=== PATIENT | male | born 1970 | race Caucasian/White ===

== ENCOUNTER 2019-09-13 06:13 | Emergency (ER) | payer MEDICAID, OTHER ==
[~2019-09-13] VITALS: Ht 175.3 cm; Wt 69.6 kg
[2019-09-13 06:16] VITALS: BP 105/60
--- NOTE | 2019-09-13 06:44 | NUR ---
Patient ambulated into room with some difficulty. Otherwise alert, oriented. Appears disheveled and hands are soiled. orders placed for imaging.
--- NOTE | 2019-09-13 06:50 | NUR ---
report from Alireza HARRISON Patient to radiology
== END 2019-09-13 07:38 | disposition home or self-care (01) ==
LOC: ED 07:20
DX: M25.561 Pain in right knee (principal); G89.29 Other chronic pain
CPT/HCPCS: 99283